=== PATIENT | female | born 1970 | race American Indian/Alaskan Native ===

== ENCOUNTER 2018-06-14 09:21 | Outpatient (CLI) | payer MEDICAID ==
--- NOTE | 2018-06-14 10:45 | Mammography Report ---
BILATERAL DIGITAL SCREENING MAMMOGRAM with CAD: 06/14/18 09:21:00 CLINICAL: Routine screening. COMPARISON:None available. FINDINGS: The breasts are heterogeneously dense, which may obscure small masses. A right outer asymmetry on an exaggerated CC view requires additional imaging. There may be correlation far posterior at the level of the nipple on the right MLO view.No architectural distortion or suspicious calcifications.The left breast is negative. IMPRESSION: Right asymmetry requiring further workup. BI-RADS CATEGORY: 0 -- Additional Imaging Evaluation Required RECOMMENDATION: Recall for right mediolateral and spot magnification exaggerated CC and MLO views and right breast ultrasound is needed. ACR BI-RADS MAMMOGRAPHIC CODES: 0 = Needs additional imaging evaluation; 1 = Negative; 2 = Benign; 3 = Probably benign; 4 = Suspicious; 5 = Malignant; 6 = Known biopsy-proven malignancy COMMENT: 1. Dense breast tissue, i.e., adenosis, fibrocystic changes, etc., may obscure an underlying neoplasm. 2. Approximately 10% of cancers are not detected with mammography. 3. A negative mammography report should not delay biopsy if a clinically suspicious mass is present. COMMENT: Patient follow-up letters are generated via our [employer] application.
== END 2018-06-14 09:22 | disposition home or self-care (01) ==
LOC: SPVWC 09:21
PROVIDERS: ATTEND Obstetrics & Gynecology
DX: Z12.31 Encounter for screening mammogram for malignant neoplasm of breast (principal); I10 Essential (primary) hypertension
CPT/HCPCS: 77067

== ENCOUNTER 2018-11-17 11:23 | Outpatient (CLI) | payer MEDICAID ==
--- NOTE | 2018-11-17 12:53 | Ultrasound Report ---
RIGHT DIGITAL DIAGNOSTIC MAMMOGRAM and RIGHT BREAST ULTRASOUND: 11/17/18 11:23:00 CLINICAL: Recalled for asymmetry. COMPARISON:06/14/18 screening FINDINGS: ML and spot magnification MLO and exaggerated CC views were obtained. Partial effacement of asymmetry on the exaggerated CC view. The other views are negative. Ultrasound of the outer right breast was performed and demonstrated an irregular solid hypoechoic mass at 10 o'clock 10 cm from the nipple. It measures 1.0 x 0.6 x 0.8 cm and correlates with the mammographic densities. It produces mild shadowing. IMPRESSION: A suspicious 1 cm right breast mass at 10 o'clock 10 cm from the nipple. Recommend ultrasound guided needle core biopsy of the right breast. BI-RADS CATEGORY: 4--Suspicious I discussed the findings and the recommendation for needle core biopsy with the patient at the time of the examination. COMMENT: 1. Dense breast tissue, i.e., adenosis, fibrocystic changes, etc., may obscure an underlying neoplasm. 2. Approximately 10% of cancers are not detected with mammography. 3. A negative mammography report should not delay biopsy if a clinically suspicious mass is present. COMMENT: Patient follow-up letters are generated via our [employer] application.
== END 2018-11-17 11:24 | disposition home or self-care (01) ==
LOC: SPVWC 11:23
PROVIDERS: ATTEND Obstetrics & Gynecology
DX: R92.8 Other abnormal and inconclusive findings on diagnostic imaging of breast (principal); I10 Essential (primary) hypertension

== ENCOUNTER 2018-12-01 13:59 | Outpatient (CLI) | payer MEDICAID ==
--- NOTE | 2018-12-01 15:51 | Ultrasound Report ---
ULTRASOUND-GUIDED NEEDLE CORE BIOPSY RIGHTBREAST WITH CLIP PLACEMENT CLINICAL: A suspicious 1 cm right breast mass at 10:00 10 cm from the nipple. FINDINGS: The procedure was explained to the patient and informed consent was obtained. Ultrasound demonstrated the previously identified mass. A marker breast with a felt tip marker and a timeout was called. The skin was prepped with Chloro-Pr ep and anesthetized with 1% lidocaine. Needle core biopsy was performed through tiny dermatotomy using ultrasound guidance, 2% lidocaine wit h epinephrine for deep anesthesia and a 14-gauge Achieve biopsy device. 5 cores were obtained and taran mariann in formalin. A clip was deployed within the mass. The patient tolerated the procedure well and there were no apparent complications. Hemostasis was ach ieved with minimal effort and a sterile dressing was applied. A postprocedure mammogram demonstrated concordant clip deployment. She left the department in good co ndition and was given instructions for wound care and follow-up. IMPRESSION: Uncomplicated ultrasound guided needle core biopsy with clip placement right breast. Signer Name: Valdemar Jones MD Signed: 12/01/2018 3:46 PM Workstation Name: [id number]
--- NOTE | 2018-12-01 15:53 | Mammography Report ---
RIGHT DIGITAL DIAGNOSTIC MAMMOGRAM CLINICAL: For clip placement after ultrasound biopsy. COMPARISON: 11/17/2018 FINDINGS: A biopsy clip is now identified at 10:00 far posterior and correlates with the mass identif ied by ultrasound. IMPRESSION: Concordant clip deployment. Signer Name: Valdemar Jones MD Signed: 12/01/2018 3:48 PM Workstation Name: [id number]
== END 2018-12-01 14:00 | disposition home or self-care (01) ==
LOC: SPVWC 13:59
PROVIDERS: ATTEND General Practice
DX: C50.411 Malignant neoplasm of upper-outer quadrant of right female breast (principal); D50.9 Iron deficiency anemia, unspecified; F10.10 Alcohol abuse, uncomplicated; I10 Essential (primary) hypertension; F31.9 Bipolar disorder, unspecified; F41.9 Anxiety disorder, unspecified; Z88.6 Allergy status to analgesic agent; Z79.899 Other long term (current) drug therapy; Z88.8 Allergy status to other drugs, medicaments and biological substances
CPT/HCPCS: 88305; 88341; 88342

== ENCOUNTER 2018-12-16 08:45 | Outpatient (CLI) | payer MEDICAID ==
--- NOTE | 2018-12-16 13:20 | Magnetic Resonance Report ---
BILATERAL BREAST MR WITHOUT AND WITH GADOLINIUM INDICATION: Newly diagnosed right breast cancer. Status post ultrasound-guided needle biopsy of a ri ght breast mass at 10:00 10 cm from the nipple on 12/01/2018. Pathology: Invasive mammary carcinoma wit h ductal and lobular features Macy grade I/III, ER/[place] positive and HER-2 negative with Ki-67 10 %. COMPARISONS: 06/14/2018, 11/17/2018 and 12/01/2018 mammograms. 11/17/2018 and 12/01/2018 right breast ultra sound. TECHNIQUE: Axial 1.0 mm T1 without, axial high-resolution 2.0 mm T2 and axial 1.0 mm dynamic vibrant high-resolution postcontrast T1 fat saturation sequences on a 1.5 Leanna magnet. The examination was p erformed with an 8-channel dedicated [place] breast coil. Post-processing with CAD and subtraction was performed on an [employer] workstation. 17.0 cc of MultiHance was injected without incident for the c ontrast portion of the exam. Consent was obtained prior to the administration of the contrast. FINDINGS: RIGHT BREAST: Mild background parenchymal enhancement. An irregular enhancing mass in the upper outer quadrant 11.4 cm from the nipple corresponds to the known cancer with a biopsy clip. The mass measur es 7.4 x 4.8 x 4.1 mm and demonstrates heterogeneous enhancement with mixed kinetics, 109% peak enhan cement and 100% type I persistent waveform. No other mass or suspicious enhancement. No suspicious ri ght axillary or right internal mammary lymph nodes. LEFT BREAST: Mild background parenchymal enhancement. No mass or suspicious enhancement. No suspiciou s left axillary or left internal mammary lymph nodes. IMPRESSION: A 7.4 mm known right breast cancer and no additional suspicious lesion of either breast. No suspicious lymph nodes. BI-RADS 6--Known Cancer Signer Name: Valdemar Jones MD Signed: 12/16/2018 1:15 PM Workstation Name: [id number]
== END 2018-12-16 08:46 | disposition home or self-care (01) ==
LOC: SPVIMAG 08:45
PROVIDERS: ATTEND Surgery
DX: C50.411 Malignant neoplasm of upper-outer quadrant of right female breast (principal); I10 Essential (primary) hypertension
CPT/HCPCS: A9577; C8908; 77049

== ENCOUNTER 2019-01-19 06:25 | Day surgery (SDC) | payer MEDICAID ==
[~2019-01-19 06:25] MED LIST: ANCEF/STERILE WATER 2 GM/20 ML IV NR
[2019-01-19] MEDS ORDERED: NACL BACTERIOSTATIC INFILTRATI ONE (07:05)
[2019-01-19] MEDS ORDERED: METHYLENE BLUE ONE (07:28)
[2019-01-19] MEDS ORDERED: NACL P/F VIAL (10 ML) 10 ML ONE (07:29)
[2019-01-19] MEDS ORDERED: ZOFRAN IV PRN (07:31)
[2019-01-19] MEDS ORDERED: TYLENOL PO NR (07:32)
--- NOTE | 2019-01-19 07:36 | Anesthesia Day of Surgery ---
Anesthesia Day of Surgery - Day of Surgery Patient Examined: Yes Patient H&P Reviewed: Yes Patient is NPO: Yes
[2019-01-19] MEDS ORDERED: XYLOCAINE 1% 20 mL INFILTRATI NR (07:37)
--- NOTE | 2019-01-19 07:38 | Anesthesia Consultation ---
Anesthesia Consult and Med Hx Date of service: 01/19/19 - Airway Anesthetic Teeth Evaluation: Good, Dentures ROM Head & Neck: Adequate Mental/Hyoid Distance: Adequate Mallampati Class: Class I Intubation Access Assessment: Good - Pre-Operative Health Status ASA Pre-Surgery Classification: ASA3 Proposed Anesthetic Plan: General Nerve Block: PEC - Pulmonary Hx Asthma: Yes COPD: No Hx Pneumonia: No Hx Sleep Apnea: Yes - Cardiovascular System Hx Hypertension: Yes - Central Nervous System Hx Neuromuscular Disorder: Yes (Migraines; Fibromyalgia) Hx Back Pain: Yes (NECK PAIN ALSO) Hx Psychiatric Problems: Yes - Gastrointestinal Hx Gastroesophageal Reflux Disease: Yes - Endocrine Hx End Stage Renal Disease: No - Hematic Hx Anemia: Yes - Other Systems Hx Alcohol Use: No 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
[2019-01-19 07:39] LABS: Basophils % (Auto) 0.9 % (0.0-1.8); Eosinophils # (Auto) 0.2 K/mm3 (0.0-0.4); Eosinophils % (Auto) 4.6 % (0.0-4.3); Hematocrit 35.3 % (30.3-42.9); Hemoglobin 11.6 gm/dl (10.1-14.3); Lymphocytes # (Auto) 1.4 K/mm3 (1.2-5.4); Lymphocytes % (Auto) 29.2 % (13.4-35.0); Mean Corpuscular HGB Conc 33 % (30-34); Mean Corpuscular Volume 89 fl (79-97); Monocytes # (Auto) 0.5 K/mm3 (0.0-0.8); Monocytes % (Auto) 10.8 % (0.0-7.3); Platelet Count 218 K/mm3 (140-440); Red Blood Count 3.95 M/mm3 (3.65-5.03); Red Cell Distribution Width 13.2 % (13.2-15.2)
[2019-01-19] MEDS ORDERED: MARCAINE 0.5% INFILTRATI ONE (07:50)
[2019-01-19] MEDS ORDERED: DECADRON ONE ×3 (07:50→12:54)
[2019-01-19] MEDS ORDERED: NEURONTIN PO NR (08:00)
[2019-01-19] MEDS ORDERED: TRANSDERM-SCOP TD NR (08:00)
[2019-01-19] MEDS ORDERED: VERSED IV NR (08:00)
[2019-01-19] MEDS ORDERED: LACTATED RINGERS 1,000 ML IV SCH (08:00)
[2019-01-19] MEDS ORDERED: DIPRIVAN 10 MG/ML IV ONE (08:02)
[2019-01-19] MEDS ORDERED: ZEMURON IV ONE (08:05)
[2019-01-19] MEDS ORDERED: XYLOCAINE CARDIAC IV ONE (08:05)
[2019-01-19] MEDS ORDERED: ZOFRAN ONE (08:05)
[2019-01-19] MEDS ORDERED: SUBLIMAZE ONE (08:05)
[2019-01-19] MEDS: SUBLIMAZE IV NR ×2 (08:21→08:28)
--- NOTE | 2019-01-19 08:58 | Mammography Report ---
RIGHT BREAST NEEDLE LOCALIZATION History: RT BREAST CANCER Comparison: 12/01/2018 Procedure: After informed consent was obtained, the right breast was prepped in sterile fashion and u tilizing digital mammographic technique and 1% lidocaine for anesthesia, a 5.0 cm Mcclendon hookwire wa s placed from a lateral approach to localize a biopsy clip. Orthogonal views demonstrate a satisfacto ry placement. The patient tolerated the procedure well and there were no complications. Post needle placement mammographic images show the wire adequately localizes the clip. Impression: Uncomplicated successful needle localization. Signer Name: Valdemar Jones MD Signed: 01/19/2019 8:53 AM Workstation Name: [id number]
[2019-01-19] MEDS ORDERED: WATER FOR IRRIG STERILE IR ONE (09:52)
[2019-01-19] MEDS ORDERED: LACTATED RINGERS 1,000 ML ONE (12:10)
--- NOTE | 2019-01-19 12:49 | Short Stay Summary ---
Short Stay Documentation Date of service: 01/19/19 - History H&P: obtained from office - Allergies and Medications Current Medications: Allergies celecoxib [From Celebrex] Allergy (Severe, Verified 01/11/19 16:53) Shortness of Breath SOB AND,HIVES AND ITCHING NSAIDS (Non-Steroidal Anti-Inflamma Allergy (Severe, Verified 01/11/19 16:53) Itching STOMACH ULCERS rofecoxib [From Vioxx] Allergy (Severe, Verified 01/11/19 16:53) Swelling THROAT SWELLS AND SOB zolpidem tartrate [From Ambien] Allergy (Intermediate, Verified 01/11/19 16:53) Itching tramadol Adverse Reaction (Intermediate, Verified 01/11/19 16:53) Hives ITCHING AND HIVES Home Medications Medication Instructions Recorded Confirmed Last Taken Type oxyCODONE /ACETAMINOPHEN [Percocet 1 tab PO Q6HR PRN #15 tablet 01/19/19 Unknown Rx 5/325] Active Medications Acetaminophen (Tylenol) 650 mg PO ONCE NR Stop: 01/19/19 16:00 Last Admin: 01/19/19 08:00 Dose: 650 mg Documented by: Cefazolin Sodium (Ancef/Sterile Water 2 Gm/20 Ml) 2 gm IV PREOP NR Stop: 01/19/19 20:00 Fentanyl (Sublimaze) 50 mcg IV Q5MIN PRN PRN Reason: Pain , Severe (7-10) Stop: 01/19/19 20:00 Fentanyl (Sublimaze) 100 mcg IV ONCE NR Stop: 01/19/19 13:00 Last Admin: 01/19/19 08:28 Dose: 50 mcg Documented by: Gabapentin (Neurontin) 300 mg PO PREOP NR Stop: 01/19/19 20:00 Last Admin: 01/19/19 08:00 Dose: 300 mg Documented by: Lactated Ringer's (Lactated Ringers) 1,000 mls @ 125 mls/hr IV DIRECT DAVID Last Admin: 01/19/19 08:00 Dose: 125 mls/hr Documented by: Lidocaine (Xylocaine 1% 20 Ml) 20 ml INFILTRATI ONCE NR Stop: 01/19/19 13:00 Midazolam HCl (Versed) 2 mg IV PREOP NR Stop: 01/19/19 23:59 Last Admin: 08/21/19 08:21 Dose: 2 mg Documented by: Ondansetron HCl (Zofran) 4 mg IV ONCE PRN PRN Reason: Nausea And Vomiting Scopolamine (Transderm-Scop) 1 each TD PREOP NR Stop: 01/19/19 20:00 - Brief post op/procedure progress note Date of procedure: 01/19/19 Pre-op diagnosis: Right breast cancer of the upper outer quadrant Post-op diagnosis: same Procedure: Right needle localization partial mastectomy with SLNB Anesthesia: GETA Findings: Right breast mass with wire and clip present Surgeon: TRI TAYLOR President Ceo & Founder: CEFERINO CAPONE Estimated blood loss: minimal Pathology: list (right partial mastectomy; x3 SLNs) Specimen disposition: to lab Condition: stable - Disposition Condition at discharge: Good Disposition: DC-01 TO HOME OR SELFCARE Short Stay Discharge Plan Activity: other (no heavy lifting) Diet: regular Wound: keep clean and dry (may shower in 48 hours) Follow up with: GUCCI ARELLANO MD [Primary Care Provider] - 7 Days TRI TAYLOR MD [Staff Physician] - 7 Days Prescriptions: oxyCODONE /ACETAMINOPHEN [Percocet 5/325] 1 tab PO Q6HR PRN #15 tablet PRN Reason: Pain
--- NOTE | 2019-01-19 12:57 | Operative Report ---
Operative Report Operative Report: Operative Report: January 19, 2019 Preoperative diagnosis: Right breast cancer of the upper outer quadrant Postoperative diagnosis: Same Procedure: Right needle localization partial mastectomy of the upper outer quadrant and SLNB Surgeon: Fang Lucas MD Test Facility Engineer: Jeanie Santacruz MD Anesthesia: General Findings: Right wire, mass and clip present within radiograph specimen; x3 SLN Complications: None EBL: 50 Disposition: PACU in good condition Indications for operative procedure: This is a 48 year old lady with newly diagnosed right breast cancer of the upper outer quadrant, Stage I [id number] ER/OR positive. Recommendations are to proceed with breast conservation. She understands the role of adjuvant radiation therapy and Oncotype DX will be obtained by medical oncology. She wished to proceed with the above procedure. Procedure in detail: The patient was taken to radiology for wire placement for localization known area of cancer. Anesthesia placed right pectoral block. Patient was then taken to the operating room. Gen. anesthesia was administered. The right nipple was injected with radioisotope. Right breast and axilla were prepped and draped in the normal sterile operative fashion. The wire was identified. Timeout was performed. Gamma probe was inserted into the axilla. The area of hot spot was identified. A right axillary incision was made with a 15 blade knife with dissection taken down to the subcutaneous tissues. The axillary fascia was opened with the Bovie cautery. 3 SLNs were identified. All remaining counts were less than 10% of the highest count. Lymph node was sent to pathology for permanent processing. Hemostasis was obtained in the right axillary cavity. Axillary cavity was appropriately irrigated and suctioned. Hemostasis was noted. Axillary fascia was approximated and closed using interrupted 3-0 Vicryl and the skin brought together and closed using a running 4-0 Monocryl followed by skin affix. Attention was then taken towards the right breast. Ultrasound was used as well to identify the location of known cancer at the 10:00 position 11 cm from the nipple. Lateral breast incision was made with a 15 blade knife and dissection taken down to subcutaneous tissues. First began with the removal of the wiere laterally, followed by raising of the medial flap with dissection take down to the pectoralis muscle, followed by raising of the inferior flap, superior flap and lateral flap with all flaps taken down to the pectoralis muscle. The breast area of concern was appropriately removed posteriorly from the pectoralis muscle with the aid of the Bovie cautery. The wire was not encountered. Specimen was marked and then sent to pathology and radiology; radiograph specimen with wire, mass and clip present. Breast cavity was irrigated and hemostasis was obtained. The posterior deep breast tissues were approximated and closed using interrupted 3-0 Vicryl. The subcutaneous tissues were approximated and closed using interrupted 3-0 Vicryl followed by closing of the skin with a running 4-0 Monocryl and skin affix. The patient tolerated surgery very well and she was awaken from anesthesia without any complication and transported to PACU in good condition.
[2019-01-19] MEDS: SUBLIMAZE IV PRN ×2 (13:38→13:52)
[2019-01-19] MEDS ORDERED: PERCOCET 5/325 PO PRN (14:03)
[2019-01-19 14:32] VITALS: BP 158/83
--- NOTE | 2019-01-19 14:54 | Mammography Report ---
RIGHT BREAST SPECIMEN RADIOGRAPH HISTORY: Right breast cancer COMPARISON: Same day needle localization images. FINDINGS/IMPRESSION: A biopsy clip and a hookwire are identified within the specimen. Excision of the targeted lesion. Signer Name: Valdemar Jones MD Signed: 01/19/2019 2:49 PM Workstation Name: [id number]
--- NOTE | 2019-01-19 16:02 | Post Anesthesia Evaluation ---
- Post Anesthesia Evaluation Patient Participated: Yes Airway Patent: Yes Stable Respiratory Function: Yes Nausea/Vomiting: No Temp > 96.8F: Yes Pain Manageable: Yes Adequeate Hydration: Yes Anesthesia Complications: No
== END 2019-01-19 15:05 | disposition home or self-care (01) ==
LOC: OR 06:25
PROVIDERS: ATTEND Surgery
DX: C50.411 Malignant neoplasm of upper-outer quadrant of right female breast (principal); D50.9 Iron deficiency anemia, unspecified; I10 Essential (primary) hypertension; G43.909 Migraine, unspecified, not intractable, without status migrainosus; J45.909 Unspecified asthma, uncomplicated; G47.30 Sleep apnea, unspecified; K21.9 Gastro-esophageal reflux disease without esophagitis; M19.90 Unspecified osteoarthritis, unspecified site; F41.9 Anxiety disorder, unspecified; F10.10 Alcohol abuse, uncomplicated; F32.9 Major depressive disorder, single episode, unspecified; Z98.51 Tubal ligation status; Z98.890 Other specified postprocedural states; Z88.8 Allergy status to other drugs, medicaments and biological substances
CPT/HCPCS: 19281; 19301; 36415; 38525; 38792; 64450; 75831; 76098; 78800; 81025; 85025; 88307; 88333; 88342; A9541; J0690; J1100; J2001; J2250; J2405; J2704; J3010; J7120; Q9968

== ENCOUNTER 2019-02-03 01:19 | Emergency (ER) | payer MEDICAID ==
[2019-02-03 01:54] LABS: Basophils % (Auto) 0.6 % (0.0-1.8); Eosinophils # (Auto) 0.2 K/mm3 (0.0-0.4); Eosinophils % (Auto) 2.9 % (0.0-4.3); Hematocrit 35.8 % (30.3-42.9); Hemoglobin 11.7 gm/dl (10.1-14.3); Lymphocytes # (Auto) 1.1 K/mm3 (1.2-5.4); Lymphocytes % (Auto) 18.5 % (13.4-35.0); Mean Corpuscular HGB Conc 33 % (30-34); Mean Corpuscular Volume 90 fl (79-97); Monocytes # (Auto) 0.4 K/mm3 (0.0-0.8); Monocytes % (Auto) 7.3 % (0.0-7.3); Platelet Count 243 K/mm3 (140-440); Red Blood Count 3.99 M/mm3 (3.65-5.03); Red Cell Distribution Width 13.3 % (13.2-15.2)
[2019-02-03 02:14] LABS: Alanine Aminotransferase 14 units/L (7-56); Albumin 4.1 g/dL (3.9-5); BUN/Creatinine Ratio 20; Blood Urea Nitrogen 10 mg/dL (7-17); Hemolysis Index 5
[2019-02-03] MEDS ORDERED: LIDOCAINE VISCOUS 2% PO ONE (03:43)
[2019-02-03] MEDS ORDERED: ZOFRAN IV ONE (03:43)
[2019-02-03] MEDS ORDERED: ALUM-MAG HYDROX-SIMETH 200-200-20MG/5ML PO ONE (03:43)
[2019-02-03] MEDS ORDERED: CARAFATE PO ONE (03:44)
[2019-02-03 04:01] LABS: Bilirubin,Urine NEG (Negative); Blood,Urine NEG (Negative); Color,Urine Yellow (Yellow); Mucus,Urine 3+ /HPF; Protein,Urine <15 mg/dL mg/dL (Negative)
--- NOTE | 2019-02-03 05:26 | Cat Scan Report ---
CT ABDOMEN AND PELVIS WITH CONTRAST INDICATION: abdominal pain. TECHNIQUE: Axial CT images were obtained through the abdomen and pelvis after 100 cc Omnipaque [address] scans at this location are performed using CT dose reduction for ALARA by means of automated exposure control. COMPARISON: None available. FINDINGS: LOWER CHEST: No significant abnormality. LIVER: No significant abnormality. GALLBLADDER: Multiple calcified gallstones without CT evidence for cholecystitis. BILE DUCTS: No significant abnormality. PANCREAS: No significant abnormality. SPLEEN: No significant abnormality. ADRENALS: No significant abnormality. RIGHT KIDNEY and URETER: No significant abnormality. LEFT KIDNEY and URETER: No significant abnormality. STOMACH and SMALL BOWEL: Gastric Janet-en-Y bypass surgery. Postsurgical change in distal small bowel and right lower quadrant. Mild bowel wall thickening of terminal ileum and cecum suggestive for infla mmatory bowel disease such as Crohn's. COLON: Mild bowel wall thickening of cecum APPENDIX: Normal. PERITONEUM: Trace amount of left-sided free fluid No free air. No fluid collection. LYMPH NODES: No significant adenopathy. AORTA and ARTERIES: No significant abnormality. IVC and VEINS: No significant abnormality. URINARY BLADDER: No significant abnormality. REPRODUCTIVE ORGANS: No significant abnormality. ADDITIONAL FINDINGS: None. SKELETAL SYSTEM: No significant abnormality. IMPRESSION: 1. Mild ileocolitis suggestive for active inflammatory bowel disease such as Crohn's. No obstruction. 2. Cholelithiasis and previous gastric Janet-en-Y bypass surgery. Signer Name: Juwan Trotter MD Signed: 02/03/2019 5:22 AM Workstation Name: [id number]
[2019-02-03] MEDS ORDERED: FLAGYL PO ONE (06:46)
[2019-02-03] MEDS ORDERED: LEVAQUIN PO ONE (06:46)
[2019-02-03] MEDS ORDERED: DECADRON IV ONE (06:46)
--- NOTE | 2019-02-03 07:01 | Emergency Department Report ---
ED Abdominal Pain HPI - General Chief Complaint: Abdominal Pain Stated Complaint: ABD PAIN Source: patient, EMS Mode of arrival: Ambulatory Limitations: No Limitations - History of Present Illness Initial Comments: Patient is a 48-year-old -[place] female with a history of GERD, gastric bypass who presents to the ED complaining of acute onset persistent severe epigastric pain that radiates to the right upper quadrant and periumbilical area for the last 1 month, worse in the last 1 week. Patient states that the pain gets worse with food. Patient denies fever, chills, vomiting, diarrhea, chest pain, shortness of breath, dysuria, urinary frequency and urgency, vaginal bleeding, diarrhea, hematemesis, cough or sore throat. MD Complaint: abdominal pain -: Gradual, month(s) (1) Location: periumbilical, epigastric Radiation: RUQ, epigastric Migration to: no migration Severity: severe Severity scale (0 -10): 7 Quality: cramping, aching, sharp Consistency: intermittent Improves With: nothing Worsens With: eating Associated Symptoms: denies other symptoms, nausea. denies: vomiting, diarrhea, fever, chills, constipation, dysuria, hematemesis, hematochezia, melena, hematuria, anorexia - Related Data Previous Rx's Medication Instructions Recorded Last Taken Type oxyCODONE /ACETAMINOPHEN [Percocet 1 tab PO Q6HR PRN #15 tablet 01/19/19 Unknown Rx 5/325] Ciprofloxacin HCl [Ciprofloxacin 500 mg PO Q12HR #20 tab 02/03/19 Unknown Rx TAB] Dicyclomine [Bentyl] 20 mg PO Q6H PRN #24 tablet 02/03/19 Unknown Rx Ondansetron [Zofran Odt] 4 mg PO Q6HR PRN #15 tab.rapdis 02/03/19 Unknown Rx metroNIDAZOLE [Flagyl] 500 mg PO Q8HR #30 tablet 02/03/19 Unknown Rx raNITIdine HCl [Zantac] 150 mg PO Q12H #30 tablet 02/03/19 Unknown Rx Allergies Allergy/AdvReac Type Severity Reaction Status Date / Time celecoxib [From Celebrex] Allergy Severe Shortness Verified 01/11/19 16:53 of Breath NSAIDS (Non-Steroidal Allergy Severe Itching Verified 01/11/19 16:53 Anti-Inflamma rofecoxib [From Vioxx] Allergy Severe Swelling Verified 01/11/19 16:53 zolpidem tartrate Allergy Intermediate Itching Verified 01/11/19 16:53 [From Ambien] tramadol AdvReac Intermediate Hives Verified 01/11/19 16:53 ED Review of Systems ROS: Stated complaint: ABD PAIN Other details as noted in HPI Constitutional: denies: chills, fever Eyes: denies: eye pain, eye discharge, vision change ENT: denies: ear pain, throat pain Respiratory: denies: cough, shortness of breath, wheezing Cardiovascular: denies: chest pain, palpitations Endocrine: no symptoms reported Gastrointestinal: abdominal pain, nausea. denies: diarrhea Genitourinary: denies: urgency, dysuria, discharge Musculoskeletal: denies: back pain, joint swelling, arthralgia Skin: denies: rash, lesions Neurological: denies: headache, weakness, paresthesias Psychiatric: denies: anxiety, depression Hematological/Lymphatic: denies: easy bleeding, easy bruising ED Past Medical Hx - Past Medical History Previous Medical History?: Yes Hx Hypertension: Yes Hx Congestive Heart Failure: No Hx Diabetes: No Hx GERD: Yes Hx Arthritis: Yes (SCIATICA RT LEG-[address]) Hx Psychiatric Treatment: Yes Hx Asthma: Yes Hx COPD: No - Surgical History Past Surgical History?: Yes Additional Surgical History: Tubal Ligation - Social History Smoking Status: Former Smoker Substance Use Type: None - Medications Home Medications: Home Medications Medication Instructions Recorded Confirmed Last Taken Type oxyCODONE /ACETAMINOPHEN [Percocet 1 tab PO Q6HR PRN #15 tablet 01/19/19 Unknown Rx 5/325] Ciprofloxacin HCl [Ciprofloxacin 500 mg PO Q12HR #20 tab 02/03/19 Unknown Rx TAB] Dicyclomine [Bentyl] 20 mg PO Q6H PRN #24 tablet 02/03/19 Unknown Rx Ondansetron [Zofran Odt] 4 mg PO Q6HR PRN #15 tab.rapdis 02/03/19 Unknown Rx metroNIDAZOLE [Flagyl] 500 mg PO Q8HR #30 tablet 02/03/19 Unknown Rx raNITIdine HCl [Zantac] 150 mg PO Q12H #30 tablet 02/03/19 Unknown Rx ED Physical Exam - General Limitations: No Limitations General appearance: alert, in no apparent distress - Head Head exam: Present: atraumatic, normocephalic, normal inspection - Eye Eye exam: Present: normal appearance, PERRL, EOMI Pupils: Present: normal accommodation - ENT ENT exam: Present: normal exam, normal orophraynx, mucous membranes moist, TM's normal bilaterally, normal external ear exam - Neck Neck exam: Present: normal inspection, full ROM - Respiratory Respiratory exam: Present: normal lung sounds bilaterally. Absent: respiratory distress, wheezes, rales, rhonchi, chest wall tenderness, accessory muscle use, decreased breath sounds - Cardiovascular Cardiovascular Exam: Present: regular rate, normal rhythm, normal heart sounds. Absent: systolic murmur, diastolic murmur, rubs, gallop - GI/Abdominal GI/Abdominal exam: Present: soft, tenderness (palpable moderate tenderness in the epigastric and right upper quadrant area, no guarding or rebound), normal bowel sounds. Absent: guarding, rebound, hyperactive bowel sounds, hypoactive bowel sounds, organomegaly, mass - Rectal Rectal exam: Present: deferred - Extremities Exam Extremities exam: Present: normal inspection, full ROM, normal capillary refill - Back Exam Back exam: Present: normal inspection, full ROM. Absent: tenderness, CVA tenderness (R), CVA tenderness (L) - Neurological Exam Neurological exam: Present: alert, oriented X3, CN II-XII intact, normal gait, reflexes normal - Psychiatric Psychiatric exam: Present: normal affect, normal mood - Skin Skin exam: Present: warm, dry, intact, normal color. Absent: rash ED Course Vital Signs 02/03/19 01:28 Temperature 98.2 F Pulse Rate 79 Respiratory 18 Rate Blood Pressure 112/58 O2 Sat by Pulse 97 Oximetry - Reevaluation(s) Reevaluation #1: 02/03/19 07:00 This is a 48-year-old female who presented to the ED with persistent epigastric and right upper quadrant pain which gets worse with food. In the ED, patient is alert and oriented 3 and distention and distress. Lab test results were reviewed and are all unremarkable including urinalysis. Abdomen pelvis CT scan with contrast showed mild ileocolitis suggestive for active inflammatory bowel disease such as Crohn's. No obstruction. It also shows cholelithiasis and previous gastric Janet-en-Y bypass surgery. Patient was treated for pain in the ED and on reevaluation, patient is well controlled with medications. Patient was discharged home on medications and advised to follow- up with GI physician as well as primary care physician in 3-5 days for reevaluation or return to the ED immediately if symptoms get worse. ED Medical Decision Making - Lab Data Result diagrams: 02/03/19 01:40 02/03/19 01:40 - Radiology Data Radiology results: report reviewed, image reviewed Findings [facility] [address] [place] [address] Cat Scan Report Signed Patient: GLENIS DING MR#: [id number] : 1970 Acct:[id number] Age/Sex: 48 / F ADM Date: 02/03/19 Loc: ED Attending Dr: Ordering Physician: MELANIA ROBBINS Date of Service: 02/03/19 Procedure(s): CT abdomen pelvis w con Accession Number(s): [id number] cc: MELANIA ROBBINS CT ABDOMEN AND PELVIS WITH CONTRAST INDICATION: abdominal pain. TECHNIQUE: Axial CT images were obtained through the abdomen and pelvis after 100 cc Omnipaque [address] scans at this location are performed using CT dose reduction for ALARA by means of automated exposure control. COMPARISON: None available. FINDINGS: LOWER CHEST: No significant abnormality. LIVER: No significant abnormality. GALLBLADDER: Multiple calcified gallstones without CT evidence for cholecystitis. BILE DUCTS: No significant abnormality. PANCREAS: No significant abnormality. SPLEEN: No significant abnormality. ADRENALS: No significant abnormality. RIGHT KIDNEY and URETER: No significant abnormality. LEFT KIDNEY and URETER: No significant abnormality. STOMACH and SMALL BOWEL: Gastric Janet-en-Y bypass surgery. Postsurgical change in distal small bowel and right lower quadrant. Mild bowel wall thickening of terminal ileum and cecum suggestive for inflammatory bowel disease such as Crohn's. COLON: Mild bowel wall thickening of cecum APPENDIX: Normal. PERITONEUM: Trace amount of left-sided free fluid No free air. No fluid collection. LYMPH NODES: No significant adenopathy. AORTA and ARTERIES: No significant abnormality. IVC and VEINS: No significant abnormality. URINARY BLADDER: No significant abnormality. REPRODUCTIVE ORGANS: No significant abnormality. ADDITIONAL FINDINGS: None. SKELETAL SYSTEM: No significant abnormality. IMPRESSION: 1. Mild ileocolitis suggestive for active inflammatory bowel disease such as Crohn's. No obstruction. 2. Cholelithiasis and previous gastric Janet-en-Y bypass surgery. Signer Name: Juwan Trotter MD Signed: 02/03/2019 5:22 AM Workstation Name: [id number] Transcribed By: TL Dictated By: Juwan Trotter MD Electronically Authenticated By: Juwan Trotter MD Signed Date/Time: 02/03/19 0522 - Medical Decision Making This is a 48-year-old female who presented to the ED with persistent epigastric and right upper quadrant pain which gets worse with food. In the ED, patient is alert and oriented 3 and distention and distress. Lab test results were reviewed and are all unremarkable including urinalysis. Abdomen pelvis CT scan with contrast showed mild ileocolitis suggestive for active inflammatory bowel disease such as Crohn's. No obstruction. It also shows cholelithiasis and previous gastric Janet-en-Y bypass surgery. Patient was treated for pain in the ED and on reevaluation, patient is well controlled with medications. Patient was discharged home on medications and advised to follow- up with GI physician as well as primary care physician in 3-5 days for reevaluation or return to the ED immediately if symptoms get worse. - Differential Diagnosis abdominal pain; GERD, Gallstones; Ileitis; Gastritis; UTI Critical care attestation.: If time is entered above; I have spent that time in minutes in the direct care of this critically ill patient, excluding procedure time. ED Disposition Clinical Impression: Abdominal pain, acute, epigastric Regional ileocolitis Qualifiers: Digestive disease complication type: without complication Qualified Code(s): K50.80 - Crohn's disease of both small and large intestine without complications Gallstones without obstruction of gallbladder Qualifiers: Cholelithiasis location: gallbladder Cholecystitis presence: without cholecystitis Qualified Code(s): K80.20 - Calculus of gallbladder without cholecystitis without obstruction Disposition: DC-01 TO HOME OR SELFCARE Is pt being admited?: No Does the pt Need Aspirin: No Condition: Stable Instructions: Abdominal Pain (ED), Cholelithiasis (ED) Additional Instructions: Take medications with food, drink plenty of fluids and follow-up with your primary care physician or GI physician in 3-5 days for reevaluation. Return to the ED immediately if symptoms get worse. Prescriptions: Dicyclomine [Bentyl] 20 mg PO Q6H PRN #24 tablet PRN Reason: Pain , Severe (7-10) Ciprofloxacin HCl [Ciprofloxacin TAB] 500 mg PO Q12HR #20 tab metroNIDAZOLE [Flagyl] 500 mg PO Q8HR #30 tablet raNITIdine HCl [Zantac] 150 mg PO Q12H #30 tablet Ondansetron [Zofran Odt] 4 mg PO Q6HR PRN #15 tab.rapdis PRN Reason: Pain , Severe (7-10) Referrals: GUCCI ARELLANO MD [Primary Care Provider] - 3-5 Days Time of Disposition: 07:06 Print Language: SOUTH KOREAN
[2019-02-03 07:34] VITALS: BP 135/64
== END 2019-02-03 07:25 | disposition home or self-care (01) ==
LOC: ED 01:19
DX: K50.80 Crohn's disease of both small and large intestine without complications (principal); K80.20 Calculus of gallbladder without cholecystitis without obstruction; I10 Essential (primary) hypertension; K21.9 Gastro-esophageal reflux disease without esophagitis; M19.90 Unspecified osteoarthritis, unspecified site; J45.909 Unspecified asthma, uncomplicated; Z98.51 Tubal ligation status; Z87.891 Personal history of nicotine dependence
CPT/HCPCS: 36415; 74177; 80053; 81001; 83690; 85025; 96374; 96375; 99284; J1100; J2405; Q9967

== ENCOUNTER 2019-08-16 08:01 | Outpatient (CLI) | payer MEDICAID ==
--- NOTE | 2019-08-16 09:05 | Mammography Report ---
DIGITAL DIAGNOSTIC MAMMOGRAM WITH CAD, 08/16/2019 INDICATION: Breast cancer survivor status post right partial mastectomy with radiation therapy in 201 9. TECHNIQUE: Digital bilateral mammographic imaging was performed. Spot compression views were obtaine d. This examination was interpreted with the benefit of Computer-aided Detection analysis. COMPARISON: 06/14/2018 FINDINGS: Breast Density: The breasts are heterogeneously dense, which may obscure small masses. There is no evidence of dominant mass, suspicious calcifications or architectural distortion in eithe r breast. The right breast is smaller than the left. Benign right upper outer postsurgical scar. Skin thickening of the right breast measures 7 mm. IMPRESSION: No mammographic evidence of malignancy. Follow up recommendation: Routine yearly BI-RADS Category 2: Benign. A "normal" or negative report should not discourage follow up or biopsy of a clinically significant f inding. A written summary of these findings will be mailed to the patient. The patient will be entered into a mammography reporting system which will generate a reminder letter for the patient's next appointmen t at the appropriate interval. According to the [employer], yearly mammograms are recommended starting at age 40 and continuing as long as a woman is in good health. Breast MRI is recommended for women with an shellie roximately 20-25% or greater lifetime risk of breast cancer, including women with a strong family his tory of breast or ovarian cancer and women who have been treated for Hodgkin's disease. Signer Name: Valdemar Jones MD Signed: 08/16/2019 9:00 AM Workstation Name: [id number]
== END 2019-08-16 08:02 | disposition home or self-care (01) ==
LOC: SPVWC 08:01
PROVIDERS: ATTEND Surgery
DX: N64.59 Other signs and symptoms in breast (principal); L90.5 Scar conditions and fibrosis of skin; Z85.3 Personal history of malignant neoplasm of breast; Z90.11 Acquired absence of right breast and nipple
CPT/HCPCS: 77066

== ENCOUNTER 2020-09-13 10:21 | Outpatient (CLI) | payer MEDICAID ==
--- NOTE | 2020-09-13 11:47 | Mammography Report ---
DIGITAL DIAGNOSTIC MAMMOGRAM WITH CAD , 09/13/2020 CLINICAL INFORMATION / INDICATION: The patient has a personal history of right breast cancer treated with lumpectomy and radiation. She reports no new breast symptoms. TECHNIQUE: Digital bilateral mammographic imaging was performed. This examination was interpreted with the benefit of Computer-aided Detection analysis. COMPARISON: 02/21/2020. Only the right mammogram is available for comparison. FINDINGS: Breast Density: The breasts are heterogeneously dense, which may obscure small masses. No dominant mass, suspicious calcifications or architectural distortion in either breast. Postsurgical and postradiation changes are again noted in the right breast and appear stable. IMPRESSION: No mammographic evidence of malignancy. Follow up recommendation: Routine yearly BI-RADS Category 2: Benign. A "normal" or negative report should not discourage follow up or biopsy of a clinically significant f inding. A written summary of these findings will be mailed to the patient. The patient will be entered into a mammography reporting system which will generate a reminder letter for the patient's next appointmen t at the appropriate interval. According to the [employer], yearly mammograms are recommended starting at age 40 and continuing as long as a woman is in good health. Breast MRI is recommended for women with an shellie roximately 20-25% or greater lifetime risk of breast cancer, including women with a strong family his tory of breast or ovarian cancer and women who have been treated for Hodgkin's disease. Signer Name: Socorro Morales MD Signed: 09/13/2020 11:19 AM Workstation Name: [id number]
== END 2020-09-13 10:22 | disposition home or self-care (01) ==
LOC: SPVWC 10:21
PROVIDERS: ATTEND Surgery
DX: R92.2 Inconclusive mammogram (principal); Z85.3 Personal history of malignant neoplasm of breast
CPT/HCPCS: 77066

== ENCOUNTER 2021-08-06 08:19 | Day surgery (SDC) | payer MEDICAID ==
--- NOTE | 2021-08-06 08:55 | Anesthesia Consultation ---
Anesthesia Consult and Med Hx Date of service: 08/06/21 - Airway Anesthetic Teeth Evaluation: Good ROM Head & Neck: Adequate Mental/Hyoid Distance: Adequate Mallampati Class: Class I Intubation Access Assessment: Good - Pre-Operative Health Status ASA Pre-Surgery Classification: ASA2 Proposed Anesthetic Plan: MAC - Pulmonary Hx Smoking: Yes (former smoker quit 20yrs) Hx Asthma: Yes (no recent symptoms) - Cardiovascular System Hx Hypertension: Yes (recently started on antihypertensives) Hx Heart Attack/AMI: No Hx Percutaneous Transluminal Coronary Angioplasty (PTCA): No - Central Nervous System CVA: No Hx Back Pain: Yes - Gastrointestinal Hx Gastroesophageal Reflux Disease: Yes - Endocrine Hx Renal Disease: No Hx Liver Disease: No Hx Insulin Dependent Diabetes: No Hx Non-Insulin Dependent Diabetes: No Hx Thyroid Disease: No - Other Systems Hx Obesity: Yes (BMI 31) - Additional Comments Anesthesia Medical History Comments: No hx anesthetic complications.
--- NOTE | 2021-08-06 08:55 | Anesthesia Day of Surgery ---
Anesthesia Day of Surgery - Day of Surgery Patient Examined: Yes Patient H&P Reviewed: Yes Patient is NPO: Yes
[2021-08-06] MEDS ORDERED: SODIUM CHLORIDE 0.9% 1000 ML 1,000 ML IV SCH (09:00)
[2021-08-06] MEDS ORDERED: propofoL 200 MG/20 ML VIAL IV ONE (09:38)
--- NOTE | 2021-08-06 10:49 | Operative Report ---
Operative Report Operative Report: DOS: 08/06/21 SURGEON: Solomon Anton MD EGD WITH FOREIGN BODY REMOVAL REPORT PREOPERATIVE DIAGNOSIS and POSTOPERATIVE DIAGNOSIS: Intractable nausea and vomiting, known small bowel foreign body ESTIMATED BLOOD LOSS: Minimal DESCRIPTION OF PROCEDURE: A high-resolution EGD scope was passed through the oropharynx, esophagus, gastric remnant to afferent and efferent Jejunal loops. The scope was carefully withdrawn. At the end of the procedure, the scope was cleaned using normal technique. Vital signs monitored continuously throughout. SEDATION: Provided by Anesthesiology Services. COMPLICATIONS: None. FINDINGS: * Normal esophagus * GE junction 35 cm from incisors * Janet-en-Y gastrojejunostomy visualized. Jejunal mucosa normal-appearing. * Again visualized was the large suture with loop and knot of the suture just distal to the gastrojejunal anastomosis. The suture was not obstructing and the scope was able to pass easily, however due to the loop with a knot in it suspect food getting caught within the suture and causing traction and pain and vomiting. Therefore, and a scissors were used and the suture was cut. Approximately 90% of the visible suture was now no longer attached to the mucosa. Cold forceps were used to grasp and remove the suture material. There was about 1 cm of suture material left. Attempted to cut that as well however the Endo suture is malfunctioned and would not work. Therefore as the remaining suture material is straight and completely nonobstructing therefore was left in place as risks of trying to remove that small amount residual suture would outweigh the minimal to no benefit of removal * Remainder of exam unremarkable RECOMMENDATIONS: Patient will follow up with me to determine response to therapy
[2021-08-06 11:23] VITALS: BP 151/93
== END 2021-08-06 11:15 | disposition home or self-care (01) ==
LOC: GIO 08:19
PROVIDERS: ATTEND Student in an Organized Health Care Education/Training Program
DX: R11.2 Nausea with vomiting, unspecified (principal); R63.4 Abnormal weight loss; D50.9 Iron deficiency anemia, unspecified; R41.89 Other symptoms and signs involving cognitive functions and awareness; F10.10 Alcohol abuse, uncomplicated; I10 Essential (primary) hypertension; J45.909 Unspecified asthma, uncomplicated; K21.9 Gastro-esophageal reflux disease without esophagitis; E66.9 Obesity, unspecified; M79.7 Fibromyalgia; M19.90 Unspecified osteoarthritis, unspecified site; F31.9 Bipolar disorder, unspecified; F41.9 Anxiety disorder, unspecified; Z98.890 Other specified postprocedural states; Z88.8 Allergy status to other drugs, medicaments and biological substances; Z79.899 Other long term (current) drug therapy; Z98.51 Tubal ligation status; Z85.3 Personal history of malignant neoplasm of breast; Z87.440 Personal history of urinary (tract) infections; Z68.31 Body mass index [BMI] 31.0-31.9, adult; Z80.0 Family history of malignant neoplasm of digestive organs
CPT/HCPCS: 43247; J2704; J7120

== ENCOUNTER 2021-10-08 14:36 | Outpatient (CLI) | payer MEDICAID ==
--- NOTE | 2021-10-10 13:06 | Mammography Report ---
DIGITAL SCREENING MAMMOGRAM WITH CAD, 10/08/2021 CLINICAL INFORMATION / INDICATION: Routine screening mammography. SCREENING MAMMO TECHNIQUE: Digital bilateral 2D mammography was obtained in the craniocaudal and mediolateral obliqu e projections. This examination was interpreted with the benefit of Computer-Aided Detection analysis . COMPARISON: 08/16/2019 through 09/13/2020. FINDINGS: Breast Density: The breasts are heterogeneously dense, which may obscure small masses. No dominant mass, suspicious calcifications, or architectural distortion in the left breast. There are postlumpectomy/radiation changes in the right upper outer quadrant posteriorly, unchanged. No new abnormality is seen. IMPRESSION: No mammographic evidence of malignancy. Follow up recommendation: Routine yearly screening mammogram. - The ACR recommends yearly screening MRI in patients with a personal history of breast cancer who hidalgo ve dense fibroglandular tissue as well in patients who were diagnosed with breast cancer under the ag e of 50. BI-RADS Category 2: BENIGN. A "normal" or negative report should not discourage follow up or biopsy of a clinically significant f inding. A written summary of these findings will be mailed to the patient. The patient will be entered into a mammography reporting system which will generate a reminder letter for the patient's next appointmen t at the appropriate interval. The [employer] recommends yearly mammograms starting at age 40 and continuing as l shannon as a woman is in good health. Breast MRI is recommended for women with an approximate 20-25% or greater lifetime risk of breast cancer, including women with a strong family history of breast or ova shamir cancer or who have been treated for Hodgkin's disease. Signer Name: Steve Bell MD Signed: 10/10/2021 1:02 PM Workstation Name: [id number]
== END 2021-10-08 14:37 | disposition home or self-care (01) ==
LOC: SPVWC 14:36
PROVIDERS: ATTEND Surgery
DX: Z12.31 Encounter for screening mammogram for malignant neoplasm of breast (principal)
CPT/HCPCS: 77067

== ENCOUNTER 2021-12-11 13:12 | Outpatient (CLI) | payer MEDICAID ==
--- NOTE | 2021-12-13 09:32 | Mammography Report ---
DEXA BONE DENSITY SCAN INDICATION / CLINICAL INFORMATION: AROMATASE INHIBITOR USE. 51 years Female COMPARISON: 10/18/2019 LUMBAR SPINE, L1-L4: - Bone mineral density (BMD) = 1.141 g/cm2. - T-score = 0.9 - Change (%) since most recent prior (if available): -1.7 RIGHT HIP, not done LEFT HIP, TOTAL : - Bone mineral density (BMD) = 0.790 g/cm2. - T-score = -1.2 - Change (%) since most recent prior (if available): -7.9 IMPRESSION: 1. WHO Classification: Osteopenia. Fracture Risk: Increased. Note: 10-Year Fracture Risk (FRAX) not reported. This DEXA unit lacks FRAX functionality. BMD Reporting Guidelines (ISCD, 2015) BMD Reporting in Postmenopausal Women and in Men Age 50 and Older - T-scores are preferred. - The WHO densitometric classification is applicable. BMD Reporting in Females Prior to Menopause and in Males Younger Than Age 50 - Z-scores, not T-scores, are preferred. This is particularly important in children. - A Z-score of -2.0 or lower is defined as below the expected range for age, and a Z-score above -2.0 is within the expected range for age. - Osteoporosis cannot be diagnosed in men under age 50 on the basis of BMD alone. - The WHO diagnostic criteria may be applied to women in the menopausal transition. http://www.iscd.org/official-positions/6789-pqbv-dempfowp-positions-adult/ Signer Name: Juwan Trotter MD Signed: 12/13/2021 9:27 AM Workstation Name: [id number]
== END 2021-12-11 13:13 | disposition home or self-care (01) ==
LOC: SPVWC 13:12
PROVIDERS: ATTEND Internal Medicine Hematology & Oncology
DX: M85.88 Other specified disorders of bone density and structure, other site (principal); Z79.811 Long term (current) use of aromatase inhibitors
CPT/HCPCS: 77080